=== PATIENT | female | born 1985 | race Caucasian/White ===

== ENCOUNTER 2018-11-14 19:05 | Outpatient (CLI) | END 2018-11-14 21:50 | disposition home or self-care (01) ==

== ENCOUNTER 2019-01-22 16:40 | Inpatient (IN) | payer OTHER ==
[~2019-01-22] VITALS: Ht 157.5 cm; Wt 72.1 kg
[~2019-01-22 16:40] MED LIST: CALC-143 PO; FERR256T PO; OXYTOCIN 30 UNITS/LR 500 ML BAG IV ONE; PREN1TAB91 PO
[2019-01-22 16:50] VITALS: Ht 157.5 cm; Wt 72.1 kg
[2019-01-22 16:54] VITALS: BP 124/72; PULSE 83; RESP 20
[2019-01-22] MEDS ORDERED: DOCU-144 PO (17:11)
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
[2019-01-22] MEDS ORDERED: LACTATED RINGER'S 1,000 ML IV SCH ×2 (18:03→21:57)
[2019-01-22] MEDS ORDERED: MISOPROSTOL 200 MCG TAB PR PRN ×2 (18:30→22:00)
[2019-01-22] MEDS ORDERED: OXYTOCIN 30 UNITS/LR 500 ML IV PRN ×2 (18:30→22:00)
[2019-01-22] MEDS ORDERED: CEFAZOLIN 2 GM/50 ML (PMX) 50 ML IVPB SCH (18:30)
[2019-01-22] MEDS ORDERED: METHYLERGONOVINE 0.2 MG INJ IM PRN ×2 (18:30→22:00)
[2019-01-22] MEDS ORDERED: CARBOPROST 250 MCG INJ IM PRN ×2 (18:30→22:00)
[2019-01-22] MEDS ORDERED: OXYTOCIN 30 UNITS/LR 500 ML IV SCH (18:30)
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
--- NOTE | 2019-01-22 20:47 | PREAC ---
Date/Time of Note Date/Time of Note DATE: 01/22/19 TIME: 20:46 Anesthesia Eval and Record Evaluation Time Pre-Procedure Interview DATE: 01/22/19 TIME: 20:46 Age 33 Sex female NPO: 8 hrs Preoperative diagnosis IUP Planned procedure Repeat Csection Past Medical History Past Medical History: None Surgery & Anesthesia Issues No known issue Meds Anticoagulation: No Beta Vito within 24 hr: No Reason Beta Vito not given: Pt. not on B-Vito Reported Medications Docusate Sodium* (Colace*) 100 Mg Capsule, 100 MG PO DAILY, #30 CAP 01/22/19 Ferrous Gluconate (Iron) 256 Mg Tablet, 256 MG PO DAILY, TAB 11/14/18 Calcium Citrate/Vitamin D (Citracal-Vitamin D 200 MG-250) 1 Each Tablet, 1 EACH PO DAILY, TAB 11/14/18 Pnv95/Ferrous Fumarate/FA ( Formula Tablet) 1 Each Tablet, 1 EACH PO, TAB 11/14/18 Current Medications Lactated Ringer's 1,000 ml @ 125 mls/hr Q8H IV Last administered on 01/22/19at 18:18; Admin Dose 125 MLS/HR; Start 01/22/19 at 18:03 Cefazolin Sodium/ Dextrose 50 ml @ 100 mls/hr ONCE IVPB ; Start 01/22/19 at 18:30 Oxytocin/Lactated Ringer's 500 ml @ 125 mls/hr POST IV ; Start 01/22/19 at 18:30 Oxytocin/Lactated Ringer's 500 ml @ 0 mls/hr ONCE PRN IV .VAGINAL BLEEDING; Start 01/22/19 at 18:30 Methylergonovine Maleate (Methergine) 0.2 mg ONCE PRN IM .VAGINAL BLEEDING; Start 01/22/19 at 18:30 Carboprost Tromethamine (Hemabate) 250 mcg ONCE PRN IM .VAGINAL BLEEDING; Start 01/22/19 at 18:30 Misoprostol (Cytotec) 1,000 mcg ONCE PRN [place] .VAGINAL BLEEDING; Start 01/22/19 at 18:30 Meds reviewed: Yes Allergies Coded Allergies: No Known Allergy (Unverified , 11/14/18) Allergies Reviewed: Yes Labs/Studies Labs Reviewed: Reviewed by anesthesiologist Result Diagram: 01/22/19 1820 Laboratory Tests 01/22/19 18:20 Blood Bank Test 01/22/19 18:20 Antibody Screen POSITIVE Blood Product Summary Counts Blood Type O NEGATIVE Rh Immune Globulin Candidate NO test: Positive Studies: ECG Pre-procedure Exam Last vitals Vital Signs Date Temp Pulse Resp B/P (MAP) Pulse Ox O2 O2 Flow FiO2 Time Delivery Rate 01/22/19 97.8 83 20 124/72 Room Air 16:54 (89) Airway: Adequate mouth opening, Adequate thyromental dist Mallampati: Mallampati II Teeth: Normal Lung: Normal Heart: Normal ASA Physical Status ASA physical status: 2 Emergency: None Planned Anesthetic Neuraxial: Spinal Planned Pain Management Sub-arachniod narcotics, Parenteral pain med Pre-operative Attestations Prior to commencing anesthesia and surgery, the patient was re-evaluated, there was verification of: *The patient's identity *The results of appropriate recent lab work and preoperative vital signs *The above evaluation not changing prior to induction *Anesthetic plan, risk benefits, alternative and complications discussed with patient/family; questions answered; patient/family understands, accepts and wishes to proceed. EILEEN MARI MD Jan 22, 2019 20:47
[2019-01-22] MEDS ORDERED: ONDANSETRON 4 MG INJ ONE (20:53)
[2019-01-22] MEDS ORDERED: morphine SULFATE/PF (10 MG/10 ML) INJ ONE (20:53)
[2019-01-22] MEDS ORDERED: OXYTOCIN 10 UNIT INJ ONE (20:53)
[2019-01-22] MEDS ORDERED: MIDAZOLAM 1 MG/ML 2 ML INJ ONE (21:26)
[2019-01-22] MEDS ORDERED: FENTAnyl 50 MCG/ML VIAL ONE (21:29)
[2019-01-22] MEDS: OXYTOCIN 30 UNITS/LR 500 ML IV SCH (21:57)
[2019-01-22] MEDS: IBUPROFEN 800 MG TAB PO SCH (22:00)
[2019-01-22] MEDS ORDERED: HYDROCODONE/APAP (5/325) TAB PO PRN ×2 (22:00)
[2019-01-22] MEDS ORDERED: LANOLIN HPA 1 PKT TOP PRN (22:00)
--- NOTE | 2019-01-22 22:11 | PAC ---
Date/Time of Note Date/Time of Note DATE: 01/22/19 TIME: 22:10 Post-Anesthesia Notes Post-Anesthesia Note Last documented vital signs Vital Signs Date Temp Pulse Resp B/P (MAP) Pulse Ox O2 O2 Flow FiO2 Time Delivery Rate 01/22/19 97.8 83 20 124/72 Room Air 16:54 (89) Activity: WNL Respiratory function: WNL Cardiovascular function: WNL Mental status: Baseline Pain reasonably controlled: Yes Hydration appropriate: Yes Nausea/Vomiting absent: Yes Comments BP:112/65, P:86, Spo2:100%, T:98,8 EILEEN MARI MD Jan 22, 2019 22:11
[2019-01-22] MEDS ORDERED: DIPHENHYDRAMINE 50 MG INJ IV PRN (22:30)
[2019-01-22] MEDS ORDERED: ONDANSETRON 4 MG INJ IV PRN (22:30)
[2019-01-22] MEDS ORDERED: NALOXONE (0.4 MG/ML) INJ IV PRN (22:30)
[2019-01-22] MEDS ORDERED: morphine 2 MG INJ IV PRN (22:30)
[2019-01-22] MEDS: KETOROLAC 30 MG INJ IV PRN (22:53)
[2019-01-23 00:35] VITALS: BP 119/74; PULSE 65; RESP 18
[2019-01-23] MEDS: OXYTOCIN 30 UNITS/LR 500 ML IV SCH (03:31)
[2019-01-23 03:50] VITALS: BP 101/53; PULSE 76; RESP 18
[2019-01-23] MEDS: KETOROLAC 30 MG INJ IV PRN (05:51)
[2019-01-23] MEDS: IBUPROFEN 800 MG TAB PO SCH ×3 (06:00→21:45)
[2019-01-23 08:00] VITALS: BP 99/55; PULSE 73; RESP 18
[2019-01-23] MEDS: SENNA/DOCUSATE NA (8.6MG/50MG) TAB PO SCH ×2 (09:59→21:45)
[2019-01-23 12:45] VITALS: BP 101/52; PULSE 80; RESP 18
[2019-01-23] MEDS: OXYCODONE/ACETAMINOPHEN (5/325) TAB PO PRN ×2 (14:28→19:38)
--- NOTE | 2019-01-23 15:52 | PN ---
Date/Time of Note Date/Time of Note DATE: 01/23/19 TIME: 15:51 Assessment/Plan VTE Prophylaxis Risk score (from [facility])>0 risk: 1 SCD applied (from [facility]): Yes Pharmacological prophylaxis: NA/contraindicated Pharm contraindication: low risk/ambulating Lines/Catheters IV Catheter Type (from [place]): Peripheral IV Assessment/Plan Assessment/Plan POSTCSECTION DAY 1 CHRONIC IRON DEFICIENCY ANEMIA ORDERED ADVANCE DIET TOLERATED CBC ON 3RD POSTOP DAY Result Diagram: 01/23/19 0647 01/23/19 0647 Results 24hrs Laboratory Tests Test 01/22/19 16:45 01/22/19 18:20 01/23/19 06:47 01/23/19 06:52 Urine Color YELLOW Urine Clarity SLIGHTLY CLOUDY A Urine pH 6.0 Urine Specific 1.018 [place] Urine Ketones NEGATIVE Urine Nitrite NEGATIVE Urine Bilirubin NEGATIVE Urine 1+ H Urobilinogen Urine Leukocyte NEGATIVE Esterase Urine 1 Microscopic RBC Urine 3 Microscopic WBC Urine Squamous FEW Epithelial Cells Urine Bacteria FEW A Urine Mucus MANY A Urine Hemoglobin NEGATIVE Urine Glucose NEGATIVE Urine Total NEGATIVE Protein White Blood 7.1 12.0 #H Count Red Blood Count 3.71 L 3.22 L Hemoglobin 10.6 L 9.2 L Hematocrit 32.9 L 29.3 L Mean Corpuscular 88.7 91.0 Volume Mean Corpuscular 28.6 L 28.6 L Hemoglobin Mean Corpuscular 32.2 31.4 L Hemoglobin Pau nt Red Cell 20.1 H 19.9 H Distribution Width Platelet Count 349 301 Mean Platelet 11.0 H 11.2 H Volume Immature 1.100 H 0.700 H Granulocytes % Neutrophils % 53.9 75.9 Lymphocytes % 30.7 15.7 Monocytes % 12.5 H 7.0 Eosinophils % 1.4 0.4 Basophils % 0.4 0.3 Nucleated Red 0.6 H 0.0 Blood Cells % Immature 0.080 H 0.080 H Granulocytes # Neutrophils # 3.9 9.1 H Lymphocytes # 2.2 1.9 Monocytes # 0.9 0.8 Eosinophils # 0.1 0.1 Basophils # 0.0 0.0 Nucleated Red 0.0 0.0 Blood Cells # Prothrombin Time 11.6 L Prothrombin Time 0.9 Ratio INR 0.84 International Normalized Ratio Activated 28.2 Partial Thrombop last Time Sodium Level 137 Potassium Level 3.8 Chloride Level 109 Carbon Dioxide 23 Level Anion Gap 5 Blood Urea 9 Nitrogen Creatinine 0.45 Est Glomerular > 60 Filtrat Rate mL/min Glucose Level 66 L Calcium Level 8.7 Lab Scanned REFERENCE LAB Report Subjective 24 Hr Interval Summary Free Text/Dictation POST CSECTION DAY 1 COMPLAIN OF INCISIONAL PAINS GOOD URINE OUTPUT PASSING GAS PER RECTUM NO BOWEL MOVEMENT YET Exam/Review of Systems Exam Vitals Vital Signs Date Temp Pulse Resp B/P (MAP) Pulse Ox O2 O2 Flow FiO2 Time Delivery Rate 01/23/19 98.5 80 18 101/52 99 Room Air 12:45 (68) Intake and Output 01/22/19 01/22/19 01/23/19 1515:00 23:00 07:00 IntakeIntake Total 200 ml 500 ml OutputOutput Total 1402 ml BalanceBalance 200 ml -902 ml Exam VITAL SIGNS STABLE: YES AFEBRILE: YES BREAST NOT ENGORGED, NON-TENDER, NO APPRECIABLE MASS: YES LUNGS CLEAR, NO RALES, WHEEZES, RHONCHI: YES SINUS RHYTHM WITHOUT MURMUR: YES ABDOMEN: NON-TENDER FUNDUS: BELOW UMBILICUS BOWEL SOUNDS: PRESENT UTERUS: FIRM INCISION (CLEAN, DRY, AND INTACT): YES LOCHIA: LIGHT DEEP TENDON REFLEXES: 0 EXTREMITIES: NO CALF TENDERNESS EDEMA SCALE: NONE Results Results 24hrs Laboratory Tests Test 01/22/19 16:45 01/22/19 18:20 01/23/19 06:47 01/23/19 06:52 Urine Color YELLOW Urine Clarity SLIGHTLY CLOUDY A Urine pH 6.0 Urine Specific 1.018 [place] Urine Ketones NEGATIVE Urine Nitrite NEGATIVE Urine Bilirubin NEGATIVE Urine 1+ H Urobilinogen Urine Leukocyte NEGATIVE Esterase Urine 1 Microscopic RBC Urine 3 Microscopic WBC Urine Squamous FEW Epithelial Cells Urine Bacteria FEW A Urine Mucus MANY A Urine Hemoglobin NEGATIVE Urine Glucose NEGATIVE Urine Total NEGATIVE Protein White Blood 7.1 12.0 #H Count Red Blood Count 3.71 L 3.22 L Hemoglobin 10.6 L 9.2 L Hematocrit 32.9 L 29.3 L Mean Corpuscular 88.7 91.0 Volume Mean Corpuscular 28.6 L 28.6 L Hemoglobin Mean Corpuscular 32.2 31.4 L Hemoglobin Pau nt Red Cell 20.1 H 19.9 H Distribution Width Platelet Count 349 301 Mean Platelet 11.0 H 11.2 H Volume Immature 1.100 H 0.700 H Granulocytes % Neutrophils % 53.9 75.9 Lymphocytes % 30.7 15.7 Monocytes % 12.5 H 7.0 Eosinophils % 1.4 0.4 Basophils % 0.4 0.3 Nucleated Red 0.6 H 0.0 Blood Cells % Immature 0.080 H 0.080 H Granulocytes # Neutrophils # 3.9 9.1 H Lymphocytes # 2.2 1.9 Monocytes # 0.9 0.8 Eosinophils # 0.1 0.1 Basophils # 0.0 0.0 Nucleated Red 0.0 0.0 Blood Cells # Prothrombin Time 11.6 L Prothrombin Time 0.9 Ratio INR 0.84 International Normalized Ratio Activated 28.2 Partial Thrombop last Time Sodium Level 137 Potassium Level 3.8 Chloride Level 109 Carbon Dioxide 23 Level Anion Gap 5 Blood Urea 9 Nitrogen Creatinine 0.45 Est Glomerular > 60 Filtrat Rate mL/min Glucose Level 66 L Calcium Level 8.7 Lab Scanned REFERENCE LAB Report Medications Medication Current Medications Acetaminophen/ Hydrocodone Bitart ([place] (5/325)) 1 tab Q4H PRN PO .PAIN 4-6; Start 01/22/19 at 22:00 Acetaminophen/ Hydrocodone Bitart ([place] (5/325)) 2 tab Q4H PRN PO .PAIN 7-10; Start 01/22/19 at 22:00 Ibuprofen (Motrin) 800 mg Q8 PO ; Start 01/22/19 at 22:00 Simethicone (Mylicon) 160 mg Q8H PRN PO .GAS; Start 01/22/19 at 22:00 Senna/Docusate Sodium (Senokot-S) 1 tab BID PO Last administered on 01/23/19at 09:59; Admin Dose 1 TAB; Start 01/23/19 at 09:00 Lanolin (Lanolin Hpa) 1 applic BEDSIDE MEDICATION PRN TOP .NIPPLES; Start 01/22/19 at 22:00 Diphtheria/ Tetanus/Acell Pertussis (Adacel) 0.5 ml ONCE ONCE IM* ; Start 01/25/19 at 09:00; Stop 01/25/19 at 09:01 Measles/Mumps/ Rubella Vaccine Live (Mmr Ii Vaccine) 0.5 ml ONCE ONCE SC* ; Start 01/25/19 at 09:00; Stop 01/25/19 at 09:01 Oxytocin/Lactated Ringer's 500 ml @ 0 mls/hr ONCE PRN IV .VAGINAL BLEEDING; Start 01/22/19 at 22:00 Methylergonovine Maleate (Methergine) 0.2 mg ONCE PRN IM .VAGINAL BLEEDING; Start 01/22/19 at 22:00 Carboprost Tromethamine (Hemabate) 250 mcg ONCE PRN IM .VAGINAL BLEEDING; Start 01/22/19 at 22:00 Misoprostol (Cytotec) 1,000 mcg ONCE PRN [place] .VAGINAL BLEEDING; Start 01/22/19 at 22:00 Oxycodone/ Acetaminophen (Percocet (5/ 325)) 1 tab Q4H PRN PO PAIN Last administered on 01/23/19at 14:28; Admin Dose 1 TAB; Start 01/22/19 at 22:00 Naloxone HCl (Narcan) 0.1 mg Q2M PRN IV .RESP RATE; Start 01/22/19 at 22:30; S top 01/23/19 at 20:59 Ketorolac Tromethamine (Toradol) 30 mg Q6H PRN IV PAIN AFTER CSECTION Last adm inistered on 01/23/19at 05:51; Admin Dose 30 MG; Start 01/22/19 at 22:30; Stop 01/23/19 at 20:59 Morphine Sulfate (morphine) 2 mg Q3H PRN IV .PAIN 1-5 Last administered on 01/23/19at 00:45; Admin Dose 2 MG; Start 01/22/19 at 22:30; Stop 01/23/19 at 20:59 Diphenhydramine HCl (Benadryl) 25 mg Q6H PRN IV .ITCHING; Start 01/22/19 at 22:30; Stop 01/23/19 at 20:59 Ondansetron HCl (Zofran Inj) 4 mg Q6H PRN IV .NAUSEA/VOMITING; Start 01/22/19 at 22:30; Stop 01/23/19 at 20:59 ADDISON SINCLAIR MD Jan 23, 2019 15:52
[2019-01-23 16:00] VITALS: BP 115/60; PULSE 88; RESP 20
--- NOTE | 2019-01-23 16:56 | OPR ---
DATE OF OPERATION: 01/22/2019 PREOPERATIVE DIAGNOSES: 1. A 38 and 2/7 weeks' intrauterine in labor. 2. One previous . 3. History of hip surgery. 4. Severe oligohydramnios. POSTOPERATIVE DIAGNOSES: 1. A 38 and 2/7 weeks' intrauterine in labor. 2. One previous . 3. History of hip surgery. 4. Severe oligohydramnios. SURGEON: Addison Constantino MD EDITOR SOUND: Emily Nettles MD ANESTHESIA: Spinal. ANESTHESIOLOGIST: Hi Levy MD OPERATION PERFORMED: Repeat low transverse section. OPERATIVE TECHNIQUE: Under spinal anesthesia, the patient was prepped and draped in the usual fashio n for abdominal surgery. It was decided that the previous midline scar from above the symphysis pubi s up to below the umbilicus was used. The scar was excised and the incision was carried from the ski n up to the fascia. Upon opening the skin up to the fascia, the small blood vessels were noted to be oozing and these were all cauterized. Fascia was opened vertically, muscle vertically and the perit oneum vertically. Upon opening the abdominal cavity and the bladder blade was put in place, an incis ion was performed from the serosa up to the endometrium on the lower uterine segment and the juan david was carried sideways with the aid of my 2 fingers. My left hand was inserted in the lower segment of th e uterus and the bag of water was ruptured. Clear fluid was noted. Baby's head was delivered with g ood fundal pressure and then baby's airways were quickly suctioned with amniotic fluid. The anterior shoulder, posterior shoulder and rest of the body of the baby were delivered. Baby was handed to e nursery nurse. The cord blood was obtained. The placenta was delivered manually and complete. Th e uterus was exteriorized. The uterus was cleansed with wet lap sponge to make sure that no me mbranes were left behind. After correct sponge count, the uterus was closed in the usual fashion usi ng #1 chromic for the first layer, continuous locking suture was used followed by #1 chromic for the second layer, imbricating sutures were used. Bleeders were checked and there was no bleeding noted. After checking for the bleeders in which there were none, both tubes and ovaries were inspected. Th ey were healthy looking. The back of the uterus and the broad ligament was checked for any hematoma and there was none noted. The uterus was put back to the pelvic cavity. Once again, uterine incisio n was checked for any bleeders and there was no bleeding noted. After correct sponge count, needle c ount and instrument count as confirmed by the sleep tech and compressed gases tester, the abdomen was closed in th e usual fashion using 0 Vicryl for the peritoneum, for the fascia with the peritoneum, continuous sut ure was used of the incision and then another [id number] suture was put in between and block lf of the incision was closed in the same fashion. Subcutaneous tissue was closed with 3-0 Vicryl an d the skin was closed with 3-0 Vicryl, subcuticular suture was used. The patient tolerated the proce dure well. Estimated blood loss was about 600 mL. Vital signs were stable during and after the proc edure. She delivered a healthy baby girl at 21:20, Apgars 8 and 9 weighing 7 pounds and 7 ounces, 38 80 grams. Dictated By: ADDISON TOBIAS/ZOILA Conf#: [id number] DID#: [id number]
[2019-01-23 20:10] VITALS: BP 111/57; PULSE 96; RESP 20
[2019-01-23] MEDS ORDERED: BISACODYL 10 MG SUPP PR ONE (20:30)
[2019-01-24 04:12] VITALS: BP 117/77; PULSE 76; RESP 16
[2019-01-24] MEDS: IBUPROFEN 800 MG TAB PO SCH ×3 (05:56→21:26)
[2019-01-24 08:00] VITALS: BP 115/75; PULSE 86; RESP 18
[2019-01-24] MEDS: SENNA/DOCUSATE NA (8.6MG/50MG) TAB PO SCH ×2 (09:04→21:26)
[2019-01-24 16:50] VITALS: BP 111/68; PULSE 90; RESP 17
[2019-01-24 20:00] VITALS: BP 112/80; PULSE 86; RESP 20
--- NOTE | 2019-01-24 20:35 | PN ---
Date/Time of Note Date/Time of Note DATE: 01/24/19 TIME: 20:32 Assessment/Plan VTE Prophylaxis Risk score (from Nsg)>0 risk: 1 SCD applied (from Nsg): No SCD contraindicated: low risk/ambulating Pharmacological prophylaxis: NA/contraindicated Pharm contraindication: low risk/ambulating Lines/Catheters IV Catheter Type (from Nrsg): Peripheral IV Assessment/Plan Assessment/Plan POST CSECTION DAY 2 CHROMIC IRON DEFICIENCY ANEMIA HOME TOMORROW CBC TOMORROW COUNSELED INSTRUCTED PRESCRIPTION GIVEN FOR PAIN RETURN TO CLINIC IN 2 WEEKS CALL OFFICE IF THERE IS ANY PROBLEM OR CONCERN CONTINUE WITH VITAMINS OD AND FERROUS SULFATE 325MG PO TID DIET ADVISED Result Diagram: 01/23/19 0647 01/23/19 0647 Subjective 24 Hr Interval Summary Free Text/Dictation POST CSECTION DAY 2 LITTLE BOWEL MOVEMENT GOOD URINE OUTPUT FEELS LESS INCISIONAL PAINS Exam/Review of Systems Exam Vitals Vital Signs Date Temp Pulse Resp B/P (MAP) Pulse Ox O2 O2 Flow FiO2 Time Delivery Rate 01/24/19 97.9 86 20 112/80 Room Air 20:00 (91) 01/23/19 98 20:10 Intake and Output 01/23/19 01/23/19 01/24/19 1414:59 22:59 06:59 IntakeIntake Total 950 ml 400 ml OutputOutput Total 1500 ml 2450 ml 650 ml BalanceBalance -550 ml -2050 ml -650 ml Exam VITAL SIGNS STABLE: YES AFEBRILE: YES BREAST NOT ENGORGED, NON-TENDER, NO APPRECIABLE MASS: YES LUNGS CLEAR, NO RALES, WHEEZES, RHONCHI: YES SINUS RHYTHM WITHOUT MURMUR: YES ABDOMEN: NON-TENDER FUNDUS: BELOW UMBILICUS BOWEL SOUNDS: PRESENT UTERUS: FIRM INCISION (CLEAN, DRY, AND INTACT): YES LOCHIA: LIGHT DEEP TENDON REFLEXES: 0 EXTREMITIES: NO CALF TENDERNESS EDEMA SCALE: NONE Medications Medication Current Medications Acetaminophen/ Hydrocodone Bitart ([place] (5/325)) 1 tab Q4H PRN PO .PAIN 4-6; Start 01/22/19 at 22:00 Acetaminophen/ Hydrocodone Bitart ([place] (5/325)) 2 tab Q4H PRN PO .PAIN 7-10 Last administered on 01/24/19at 17:04; Admin Dose 2 TAB; Start 01/22/19 at 22:00 Ibuprofen (Motrin) 800 mg Q8 PO Last administered on 01/24/19at 14:07; Admin Dose 800 MG; Start 01/22/19 at 22:00 Simethicone (Mylicon) 160 mg Q8H PRN PO .GAS; Start 01/22/19 at 22:00 Senna/Docusate Sodium (Senokot-S) 1 tab BID PO Last administered on 01/24/19at 09:04; Admin Dose 1 TAB; Start 01/23/19 at 09:00 Lanolin (Lanolin Hpa) 1 applic BEDSIDE MEDICATION PRN TOP .NIPPLES; Start 01/22/19 at 22:00 Diphtheria/ Tetanus/Acell Pertussis (Adacel) 0.5 ml ONCE ONCE IM* ; Start 01/25/19 at 09:00; Stop 01/25/19 at 09:01 Measles/Mumps/ Rubella Vaccine Live (Mmr Ii Vaccine) 0.5 ml ONCE ONCE SC* ; Start 01/25/19 at 09:00; Stop 01/25/19 at 09:01 Oxytocin/Lactated Ringer's 500 ml @ 0 mls/hr ONCE PRN IV .VAGINAL BLEEDING; Start 01/22/19 at 22:00 Methylergonovine Maleate (Methergine) 0.2 mg ONCE PRN IM .VAGINAL BLEEDING; Start 01/22/19 at 22:00 Carboprost Tromethamine (Hemabate) 250 mcg ONCE PRN IM .VAGINAL BLEEDING; Start 01/22/19 at 22:00 Misoprostol (Cytotec) 1,000 mcg ONCE PRN [place] .VAGINAL BLEEDING; Start 01/22/19 at 22:00 Oxycodone/ Acetaminophen (Percocet (5/ 325)) 1 tab Q4H PRN PO PAIN Last administered on 01/23/19at 19:38; Admin Dose 1 TAB; Start 01/22/19 at 22:00 ADDISON SINCLAIR MD Jan 24, 2019 20:35
[2019-01-25 03:55] VITALS: BP 112/64; PULSE 70; RESP 20
[2019-01-25] MEDS: IBUPROFEN 800 MG TAB PO SCH (05:46)
[2019-01-25 08:30] VITALS: BP 114/66; PULSE 72; RESP 18
[2019-01-25] MEDS ORDERED: DIPHTH/TET/ACEL PERTUSS (ADULT) 0.5 ML VIAL IM* ONE (09:00)
[2019-01-25] MEDS ORDERED: MEASLES,MUMPS,RUBELLA VACCINE INJ SC* ONE (09:00)
[2019-01-25] MEDS: SENNA/DOCUSATE NA (8.6MG/50MG) TAB PO SCH (09:32)
== END 2019-01-25 12:55 | disposition home or self-care (01) | DRG 788 ==
LOC: OBT 16:40 → L-D 16:41 → OBT 17:55 → L-D 20:52 → PP1 01-23 00:33
PROVIDERS: ADMIT Obstetrics & Gynecology; ATTEND Obstetrics & Gynecology
PROC: 10D00Z1 Extraction of Products of Conception, Low, Open Approach (ICD-10-PCS; principal; 2019-01-22 21:00)
DX: O41.03X0 Oligohydramnios, third trimester, not applicable or unspecified (principal); O34.219 Maternal care for unspecified type scar from previous cesarean delivery; O99.02 Anemia complicating childbirth; D50.9 Iron deficiency anemia, unspecified; Z3A.38 38 weeks gestation of pregnancy; Z37.0 Single live birth; Z23 Encounter for immunization
CPT/HCPCS: 76815; 76818; 80048; 81001; 81003; 85025; 85610; 85730; 86592; 86850; 86870; 86885; 86900; 86901; 86920; 90715; 99464; G0463; J0690; J1885; J2250; J2270; J2274; J2405; J2590; J2790; J3010; J7120